=== PATIENT | female | born 1960 | race Caucasian/White ===

== ENCOUNTER → 2020-06-08 14:14 | Outpatient (CLI) | payer OTHER, SELFPAY ==
[2020-06-09 08:22] LABS: COVID19 Sendout Not Detected (Not Detect)
== END ==
PROVIDERS: Visit Provider Physician Assistant
DX: Z11.59 Encounter for screening for other viral diseases (principal)
CPT/HCPCS: 87635

== ENCOUNTER → 2020-06-10 10:26 | Outpatient (CLI) | payer OTHER, SELFPAY | PROVIDERS: Referring Provider Podiatrist; Visit Provider Podiatrist | DX: Z01.818 Encounter for other preprocedural examination (principal) | CPT/HCPCS: 93005; 93010 ==

== ENCOUNTER 2020-06-11 09:59 | Day surgery (SDC) | payer OTHER, SELFPAY ==
[2020-06-08 11:45] VITALS: BMI 23.8
[2020-06-11] VITALS (7 sets, daily range): BP systolic 133–168; BP diastolic 81–98; PULSE 59–72; RESP 10–18; TEMP 36.2–36.7; O2SAT 96–100; BMI 23.1
[2020-06-11] MEDS: LACTATED RINGERS 1,000 ML 100 ML IV (10:51)
--- NOTE | 2020-06-11 12:45 | P.OP_ITS ---
Operative Date/Time/Diagnoses Date of procedure: 06/11/20 Time of procedure: 12:45 Pre-op diagnosis: Right great toe arthritis, bunion pain Post-op diagnosis: same Procedure & Clinicians Procedure: Right first metatarsophalangeal joint arthroplasty with cecilio-implant placement Same procedure as scheduled: Yes Indications: Painful great toe joint right foot. Conservative measures failed to alleviate her pain and she wished to have surgical intervention at this time. Surgeon: Renetta Ferreira Click Yes if Unassisted: Yes Anesthesia Type: General Operative Notes Closure Type: primary Specimen(s): none sent Prosthetic devices, grafts, tissues, transplants, or devices: Arthrosurface Cecilio-cap first metatarsal head Estimated Blood Loss (mL): 30 Blood products transfused: none Tourniquet time (min): 49 Procedure in detail: The patient was brought to the operating room and placed on the operating table in the supine position. A tourniquet was placed about the patient's right thigh. After induction of general anesthesia the foot and ankle were prepped and draped in the usual aseptic manner. The tourniquet was inflated. Incision was made over the dorsal aspect of the right 1st metatarsophalangeal joint. The incision was deepened through subcutaneous tissues being careful to identify and retract all vital neurovascular structures. All bleeders were cauterized and ligated necessary. A significant amount of bone spurring and osteophytic lipping was noted to the dorsal 1st metatarsophalangeal joint, less to the proximal phalanx. The capsule was opened and I observed nearly 75% loss of cartilage to the first metatarsal head. A saw was used to resect the dorsal exostoses and medial eminence of the first metatarsal head. Also the dorsal spurring of the proximal phalanx. McGlamry scoop used to remove plantar sesamoid adhesions. Using the standard technique, the guide wire was placed in the central first metatarsal head, using the fluoroscopy to verify appropriate placement in 3 planes. Drilling performed to the first metatarsal head using the guide, then tapping, and the base of the implant (stem) was placed. Using the appropriate sized reamer, the first metatarsal head distally and then dorsally was used to further prepare the joint. A ronguer was used to remove additional spurring when the implant trial was placed. The joint was checked for range of motion and found to have significant increase in dorsiflexion, nearly 90 degrees. The trial was removed and after irrigation of the area with normal saline, the head of the cecilio-cap was placed and tamped in. It was a solid fit and fluoroscopy was used to verify placement of it and range of motion check was good. The tourniquet was deflated and prompt hyperemic response was seen to the foot. Subcutaneous closure was performed using Vicryl and nylon was used to close the skin. A sterile lightly compressive dressing was placed on the foot and patient was placed in postoperative shoe. Patient was transferred to the PACU with vital signs stable and vascular status intact. Complications: none Post-operative Condition: stable Disposition: PACU Plan for aftercare: Plan: Following a period of postoperative monitoring, the patient be discharged home on written and oral postoperative instructions incl uding keeping the dressing dry and intact, avoiding significant ambulation on the foot (she had been previously given detailed instructions on how much weight and how much motion to put through her toe with specific instructions leading up to her 1st postoperative appointment at her preop appointment). Icing and elevating the foot when seated home. DVT prevention techniques have been reviewed. For the 1st postoperative visit the dressing will be changed and close to the 3rd postoperative week we will likely remove the sutures.
--- NOTE | 2020-06-11 12:45 | PM.PREOP ---
Pre-operative Note COVID-19 COVID-19 status: Negative Result date/Date tested (Pos, Neg/Pending): 06/11/20 Interval Note History & Physical reviewed/Exam performed by Physician: Yes Changes to H&P: No
[2020-06-11] MEDS: CEFAZOLIN 1 GM/50 ML FROZ.PIGGY IV (13:21)
--- NOTE | 2020-06-11 13:48 | SUR.OPER ---
Supine on padded OR bed, head on pillow, arms secured on padded arm boards at <90 degrees abduction, legs uncrossed, safety belt at thigh, blanket over lower legs.
[2020-06-11] MEDS: BUPIVACAINE 0.5% (PF) VIAL 30 ML INJ (14:08)
[2020-06-11] MEDS: HYDROCODONE/ACET 5/325 TABLET 1 TAB PO (15:09)
--- NOTE | 2020-06-11 15:46 | SUR.PHASEII ---
pt states she is ready to go home. and pt was given d/c instructions. Pt d/alyse with .
--- NOTE | 2020-06-14 10:24 | SUR.PHASEI ---
out of phase one time added to chart by Johnny Damon RN after verifying times in chart
== END 2020-06-11 15:40 | disposition home or self-care (01) ==
PROVIDERS: Referring Provider Podiatrist; Visit Provider Podiatrist
PROC: (CPT 26535; principal; 2020-06-11 11:45)
DX: M19.071 Primary osteoarthritis, right ankle and foot (principal); M20.5X1 Other deformities of toe(s) (acquired), right foot; M21.611 Bunion of right foot; I10 Essential (primary) hypertension; E78.5 Hyperlipidemia, unspecified
CPT/HCPCS: 28291; J1100; J1885; J2250; J2405; J2704; J3010

== ENCOUNTER → 2020-09-04 14:11 | Outpatient (CLI) | payer OTHER, SELFPAY ==
--- NOTE | 2020-09-04 | DI.MG.S_ITS ---
BILATERAL DIGITAL SCREENING MAMMOGRAM 3D/2D WITH CAD: 09/04/2020 CLINICAL: Routine screening. Comparison is made to exams dated: 03/22/2017 mammogram, 04/11/2018 mammogram, and 04/22/2019 mammogram - [facility]. There are scattered fibroglandular elements in both breasts. Current study was also evaluated with a Computer Aided Detection (CAD) system. No significant masses, calcifications, or other findings are seen in either breast. There has been no significant interval change. IMPRESSION: NEGATIVE There is no mammographic evidence of malignancy. A 1 year screening mammogram is recommended. This exam was interpreted at Station ID: [id number]. NOTE: For mammograms, a report in lay terms will be sent to the patient. Approximately 15% of breast malignancies will not be visualized mammographically. In the management of a palpable breast mass, a negative mammogram must not discourage biopsy of a clinically suspicious lesion. Electronically Signed By: Arin bateman/tayler:09/05/2020 16:13:37 letter sent: Normal Exam ACR BI-RADS Category 1: Negative 3341F
== END ==
PROVIDERS: PCP Nurse Practitioner Family; Referring Provider Nurse Practitioner Family; Visit Provider Nurse Practitioner Family
DX: Z12.31 Encounter for screening mammogram for malignant neoplasm of breast (principal)
CPT/HCPCS: 77063; 77067

== ENCOUNTER → 2021-09-08 14:52 | Outpatient (CLI) | payer OTHER, SELFPAY ==
--- NOTE | 2021-09-08 14:53 | DI.MG.S_ITS ---
BILATERAL DIGITAL SCREENING MAMMOGRAM 3D/2D WITH CAD: 09/08/2021 CLINICAL: Routine screening. Family history of breast cancer. Comparison is made to exams dated: 09/04/2020 mammogram - [facility], 04/22/2019 mammogram, and 04/11/2018 mammogram - [facility]. The tissue of both breasts is heterogeneously dense. This may lower the sensitivity of mammography. Current study was also evaluated with a Computer Aided Detection (CAD) system. No significant masses, calcifications, or other findings are seen in either breast. There has been no significant interval change. IMPRESSION: NEGATIVE There is no mammographic evidence of malignancy. A 1 year screening mammogram is recommended. This exam was interpreted at Station ID: [id number]. NOTE: For mammograms, a report in lay terms will be sent to the patient. Approximately 15% of breast malignancies will not be visualized mammographically. In the management of a palpable breast mass, a negative mammogram must not discourage biopsy of a clinically suspicious lesion. Electronically Signed By: Jarvis harris/tayler:09/08/2021 16:08:15 letter sent: Normal Exam ACR BI-RADS Category 1: Negative 3341F
== END ==
PROVIDERS: PCP Student in an Organized Health Care Education/Training Program; Referring Provider Student in an Organized Health Care Education/Training Program; Visit Provider Student in an Organized Health Care Education/Training Program
DX: Z12.31 Encounter for screening mammogram for malignant neoplasm of breast (principal); Z80.3 Family history of malignant neoplasm of breast
CPT/HCPCS: 77063; 77067

== ENCOUNTER → 2025-11-09 17:27 | Outpatient (CLI) | payer OTHER, MEDICARE, SELFPAY ==
--- NOTE | 2025-11-09 17:30 | DI.MG.S_ITS ---
MM screening mammo BI: 11/09/2025. BI-RADS: 1 CLINICAL: 65-year old female for bilateral screening mammogram. Tyrer-Cuzick lifetime risk of 17.2%. No personal or first-degree family history of breast cancer. Current reported family history of breast cancer: maternal grandmother, maternal aunt and paternal aunt. The patient had a prior left breast biopsy. PRIOR EXAMS 10/10/2024, 09/02/2024, 09/12/2023, 09/13/2022, 09/08/2021. MAMMOGRAPHY TECHNIQUE: 2D and 3D (tomosynthesis) digital mammographic views obtained, with additional images as needed for full coverage. Current study was also evaluated with a Computer Aided Detection (CAD) system. DENSITY C. The breasts are heterogeneously dense, which may obscure small masses. MAMMOGRAPHY FINDINGS Bilateral: No suspicious mass, asymmetry, microcalcification, or other abnormality seen. IMPRESSION: * No evidence of malignancy. RECOMMENDATIONS Bilateral * Annual screening mammography. OVERALL ASSESSMENT CATEGORY BI-RADS-1: Negative. [employer] recommends annual screening mammography beginning at age 40 for women with average risk of breast cancer. ELECTRONICALLY SIGNED: Peterson Christie M.D. on 11/10/2025 at 04:55:19 PM PT Interpreting Station ID: [id number]
== END ==
PROVIDERS: Family Provider Student in an Organized Health Care Education/Training Program; PCP Student in an Organized Health Care Education/Training Program; Referring Provider Family Medicine; Visit Provider Family Medicine
DX: Z12.31 Encounter for screening mammogram for malignant neoplasm of breast (principal); R92.333 Mammographic heterogeneous density, bilateral breasts; Z80.3 Family history of malignant neoplasm of breast
CPT/HCPCS: 77063; 77067